=== PATIENT | female | born 1930 | race Caucasian/White ===

== ENCOUNTER 2016-11-07 10:57 | Day surgery (SDC) | payer OTHER ==
[~2016-11-07] VITALS: Ht 152.4 cm; Wt 59.0 kg
[~2016-11-07 10:57] MED LIST: AMOX TR-K CLV1 EAC4 PO; ASPIRIN EC325 MG PO; ASPIRIN325 MG PO; ASPIRIN81 M2 PO; CELEBREX200 MG PO; CIPROFLOXACIN500 M1 PO; CLONAZEPAM0.5 MG PO; COLACE100 MG PO; COZAAR50 MG PO; Coumadin,Jantoven PO; ENDOCET 5-3251 EACH PO; FEOSOL325 MG PO; FIBER SELECT G1 EACH PO; FISH OIL300 MG PO; Feosol PO; LISINOPRIL5 MG PO; LO-DOSE ASPIRIN81 M1 PO; Levothroid,Synthroid PO; MEGARED OMEGA-1 EAC2 PO; MELOXICAM7.5 MG PO; Muro-128 5% Ophth So LEFT EYE; NATURAL BALANCE15 ML BOTH EYES; PANTOPRAZOLE SO40 MG PO; PRILOSEC40 MG PO; Pravachol PO; SENNA8.6 M1 PO; SYNTHROID50 MCG PO; SYSTANE 0.300 DROP/1 BOTH EYES; TESSALON PERLE100 MG PO; VITAMIN D2000 UNIT PO; VITAMIN D31000 UNI2 PO; Vicodin,Norco 5/325 PO; ZESTRIL10 MG PO; ZOFRAN4 MG PO; Zestril,Prinivil PO
[2016-11-07 12:17] VITALS: BP 174/75
[2016-11-07 15:25] VITALS: BP 173/65
[2016-11-07 16:15] VITALS: BP 174/69
== END 2016-11-07 16:18 | disposition home or self-care (01) ==
LOC: SDC 10:57
DX: H35.372 Puckering of macula, left eye (principal); H35.342 Macular cyst, hole, or pseudohole, left eye; I10 Essential (primary) hypertension; E03.9 Hypothyroidism, unspecified; K21.9 Gastro-esophageal reflux disease without esophagitis; I65.23 Occlusion and stenosis of bilateral carotid arteries; Z79.82 Long term (current) use of aspirin; Z82.3 Family history of stroke; Z80.0 Family history of malignant neoplasm of digestive organs; Z80.3 Family history of malignant neoplasm of breast; Z80.41 Family history of malignant neoplasm of ovary
CPT/HCPCS: J0690; J1100; J2405; J3300

== ENCOUNTER 2017-09-09 11:04 | Inpatient (IN) | payer OTHER ==
[~2017-09-09] VITALS: Ht 149.9 cm; Wt 62.7 kg
[~2017-09-09 11:04] MED LIST changes: +SYSTANE 0.3-0.1 EACH BOTH EYES; -SYSTANE 0.300 DROP/1 BOTH EYES
[2017-09-09 11:56] LABS: BASOPHIL (%) 0.5 % (0-1); BASOPHIL COUNT 0.1 K/uL (0-0.1); EOSINOPHIL (%) 1.7 % (0-5); EOSINOPHIL COUNT 0.2 K/uL (0-0.3); HEMATOCRIT 35.9 % (36.0-46.0); HEMOGLOBIN 12.1 G/DL (11.9-15.5); IMMATURE GRANULOCYTE (%) 0.3 % (0.0-0.7); LYMPHOCYTE (%) 18.3 % (15-42); LYMPHOCYTE COUNT 1.9 K/uL (1.0-2.8); MCH 31.1 PG (29.0-34.0); MCHC 33.7 G/DL (30.0-36.0); MCV 92.3 FL (83-99); MONOCYTE (%) 7.4 % (3-12); MONOCYTE COUNT 0.8 K/uL (0-0.8); NEUTROPHIL (%) 71.8 % (45-76); NEUTROPHIL COUNT 7.5 K/uL (1.8-6.4); PLATELET COUNT 225 K/uL (156-360); RBC DIS.WIDTH-CV 13.1 % (11.8-14.6); RBC DIS.WIDTH-SD 44.2 % (39-53); RED BLOOD COUNT 3.89 M/uL (3.80-5.20); WHITE BLOOD COUNT 10.4 K/uL (4.1-10.2)
[2017-09-09 12:08] LABS: ALBUMIN 3.8 g/dL (3.2-4.8); CHLORIDE 103 mEq/L (99-109); POTASSIUM 4.3 mEq/L (3.7-5.4); SODIUM 139 mEq/L (136-147)
[2017-09-09 12:10] LABS: GLUCOSE 104 mg/dL (70-99); TOTAL PROTEIN 6.9 g/dL (6.4-8.3)
[2017-09-09 12:12] LABS: TOTAL BILIRUBIN 1.1 mg/dL (0.0-1.0)
[2017-09-09 12:14] LABS: ALKALINE PHOSPHATASE 85 IU/L (3-129); GFR ESTIMATE (CALCULATED) 56 mL/min/
[2017-09-09 12:15] LABS: AST (GOT) 17 IU/L (2-34); UREA NITROGEN (BUN) 14 mg/dL (9-23)
[2017-09-09 12:17] LABS: ALT (GPT) 11 IU/L (3-49); LIPASE 17 U/L (1.0-51.0)
[2017-09-09 13:17] LABS: APPEARANCE CLEAR ((CLEAR)); BILIRUBIN NEGATIVE; BLOOD MODERATE; COLOR YELLOW ((YELLOW)); GLUCOSE (STRIP) NEGATIVE; KETONES NEGATIVE; LEUKOCYTES TRACE; NITRITE NEGATIVE; PROTEIN (STRIP) NEGATIVE; SPECIFIC GRAVITY 1.011 (1.000-1.030); UROBILINOGEN 0.2 MG/DL (0.2-1.0)
[2017-09-09 13:19] LABS: BACTERIA RARE /HPF; EPITHELIAL CELLS RARE /HPF; MUCUS NONE SEEN /LPF; WHITE BLOOD CELLS 0-5 /HPF (0-5)
[2017-09-09] MEDS ORDERED: PRESERVISION A1 EAC2 PO (14:55)
[2017-09-09 16:08] VITALS: BP 146/77
[2017-09-09 19:20] VITALS: BP 118/61
[2017-09-10 00:01] VITALS: BP 128/62
[2017-09-10 05:50] LABS: BASOPHIL (%) 0.5 % (0-1); BASOPHIL COUNT 0.1 K/uL (0-0.1); EOSINOPHIL (%) 0.8 % (0-5); EOSINOPHIL COUNT 0.1 K/uL (0-0.3); HEMATOCRIT 35.2 % (36.0-46.0); HEMOGLOBIN 11.5 G/DL (11.9-15.5); IMMATURE GRANULOCYTE (%) 0.4 % (0.0-0.7); LYMPHOCYTE (%) 21.6 % (15-42); LYMPHOCYTE COUNT 2.6 K/uL (1.0-2.8); MCH 30.1 PG (29.0-34.0); MCHC 32.7 G/DL (30.0-36.0); MCV 92.1 FL (83-99); MONOCYTE (%) 7.3 % (3-12); MONOCYTE COUNT 0.9 K/uL (0-0.8); NEUTROPHIL (%) 69.4 % (45-76); NEUTROPHIL COUNT 8.2 K/uL (1.8-6.4); PLATELET COUNT 228 K/uL (156-360); RBC DIS.WIDTH-CV 13.1 % (11.8-14.6); RBC DIS.WIDTH-SD 44.3 % (39-53); RED BLOOD COUNT 3.82 M/uL (3.80-5.20); WHITE BLOOD COUNT 11.8 K/uL (4.1-10.2)
[2017-09-10 06:15] LABS: CHLORIDE 105 MEQ/L (99-109); GFR ESTIMATE (CALCULATED) 56 mL/min/; GLUCOSE 90 mg/dL (70-99); SODIUM 139 MEQ/L (136-147); UREA NITROGEN (BUN) 12 mg/dL (9-23)
[2017-09-10 07:36] VITALS: BP 99/59
[2017-09-10 16:17] VITALS: BP 139/67
[2017-09-10 23:08] VITALS: BP 114/54
[2017-09-11 06:25] LABS: BASOPHIL (%) 0.4 % (0-1); EOSINOPHIL (%) 0.8 % (0-5); EOSINOPHIL COUNT 0.1 K/uL (0-0.3); HEMATOCRIT 30.1 % (36.0-46.0); HEMOGLOBIN 9.7 G/DL (11.9-15.5); IMMATURE GRANULOCYTE (%) 0.4 % (0.0-0.7); LYMPHOCYTE (%) 17.2 % (15-42); LYMPHOCYTE COUNT 1.8 K/uL (1.0-2.8); MCH 30.6 PG (29.0-34.0); MCHC 32.2 G/DL (30.0-36.0); MONOCYTE COUNT 0.7 K/uL (0-0.8); NEUTROPHIL (%) 74.2 % (45-76); NEUTROPHIL COUNT 7.8 K/uL (1.8-6.4); PLATELET COUNT 191 K/uL (156-360); RBC DIS.WIDTH-CV 13.2 % (11.8-14.6); RBC DIS.WIDTH-SD 45.4 % (39-53); RED BLOOD COUNT 3.17 M/uL (3.80-5.20); WHITE BLOOD COUNT 10.5 K/uL (4.1-10.2)
[2017-09-11 06:39] LABS: CHLORIDE 110 MEQ/L (99-109); CREATININE 0.9 MG/DL (0.6-1.3); GFR ESTIMATE (CALCULATED) > 59 mL/min/; GLUCOSE 67 mg/dL (70-99); SODIUM 140 MEQ/L (136-147); UREA NITROGEN (BUN) 14 mg/dL (9-23)
[2017-09-11 07:27] VITALS: BP 114/58
[2017-09-11 15:54] VITALS: BP 111/55
[2017-09-12 00:15] VITALS: BP 120/55
[2017-09-12 06:33] LABS: BASOPHIL (%) 0.6 % (0-1); BASOPHIL COUNT 0.1 K/uL (0-0.1); EOSINOPHIL COUNT 0.3 K/uL (0-0.3); HEMATOCRIT 32.3 % (36.0-46.0); HEMOGLOBIN 10.6 G/DL (11.9-15.5); IMMATURE GRANULOCYTE (%) 0.1 % (0.0-0.7); LYMPHOCYTE COUNT 2.5 K/uL (1.0-2.8); MCH 30.2 PG (29.0-34.0); MCHC 32.8 G/DL (30.0-36.0); MONOCYTE (%) 7.7 % (3-12); MONOCYTE COUNT 0.6 K/uL (0-0.8); NEUTROPHIL (%) 55.6 % (45-76); NEUTROPHIL COUNT 4.3 K/uL (1.8-6.4); PLATELET COUNT 209 K/uL (156-360); RBC DIS.WIDTH-CV 13.2 % (11.8-14.6); RBC DIS.WIDTH-SD 44.9 % (39-53); RED BLOOD COUNT 3.51 M/uL (3.80-5.20); WHITE BLOOD COUNT 7.8 K/uL (4.1-10.2)
[2017-09-12 06:58] LABS: CHLORIDE 110 MEQ/L (99-109); CREATININE 0.8 MG/DL (0.6-1.3); GFR ESTIMATE (CALCULATED) > 59 mL/min/; SODIUM 140 MEQ/L (136-147); UREA NITROGEN (BUN) 10 mg/dL (9-23)
[2017-09-12 06:59] LABS: GLUCOSE 87 mg/dL (70-99)
[2017-09-12 08:09] VITALS: BP 138/66
[2017-09-12 16:17] VITALS: BP 108/55
[2017-09-12 23:47] VITALS: BP 147/63
[2017-09-13 07:33] VITALS: BP 140/67
[2017-09-13] MEDS ORDERED: FLAGYL500 MG PO (10:53)
[2017-09-13] MEDS ORDERED: LEVAQUIN750 MG PO ×2 (10:53→11:06)
[2017-09-13] MEDS ORDERED: BENZONATATE100 MG PO (11:00)
[2017-09-13] MEDS ORDERED: PROBIOTIC1 EAC1 PO (12:05)
== END 2017-09-13 12:15 | disposition home or self-care (01) | DRG 392 ==
LOC: EME 11:04 → 5SOUTH 14:50 → EDOF 14:50 → ENRESERV 14:51 → 5SOUTH 15:37
PROVIDERS: Emergency Medicine; Internal Medicine
DX: K57.20 Diverticulitis of large intestine with perforation and abscess without bleeding (principal); I10 Essential (primary) hypertension; E03.9 Hypothyroidism, unspecified; K21.9 Gastro-esophageal reflux disease without esophagitis; Z96.641 Presence of right artificial hip joint; Z96.659 Presence of unspecified artificial knee joint; N17.9 Acute kidney failure, unspecified
CPT/HCPCS: 71045; 74177; 80048; 80053; 81003; 83690; 85025; 99281; 99285; J1956; J2405; J3010; J7030; S0030